=== PATIENT | female | born 1980 | race Caucasian/White ===

== ENCOUNTER → 2020-08-03 | Outpatient (CLI) | payer BC, OTHER | END | disposition home or self-care (01) | LOC: LABWHC1 10:42 | PROVIDERS: ATTEND Family Medicine | DX: Z03.818 Encounter for observation for suspected exposure to other biological agents ruled out (principal) | CPT/HCPCS: U0003; C9803 ==

== ENCOUNTER → 2022-06-30 | Outpatient (CLI) | payer OTHER ==
--- NOTE | 2022-07-04 08:08 | MM ---
Reason for Exam: Screening (asymptomatic). Baseline mammogram. Patient History: Menarche at age 11. First Full-Term at age 17. Patient used Hormonal Contraceptives for 3 years. Paternal grandmother had ovarian cancer. Maternal aunt had breast cancer. Risk Values: Liyah 5 year model risk: 0.5%. NCI Lifetime model risk: 7.1%. Prior Study Comparison: Patient's first Mammogram. No prior studies available for comparison. Tissue Density: There are scattered fibroglandular densities. Findings: Analyzed By CAD. Focal asymmetry in the left breast posterior depth upper outer quadrant. Overall Assessment: Incomplete: need additional imaging evaluation, BI-RAD 0 Management: Diagnostic Mammogram of the left breast. A clinical breast exam by your physician is recommended on an annual basis and results should be correlated with mammographic findings. Electronically signed and approved by: Tay Olivier DO
== END | disposition home or self-care (01) ==
LOC: RADMAMWWP 10:58
PROVIDERS: ATTEND Family Medicine
DX: Z12.31 Encounter for screening mammogram for malignant neoplasm of breast (principal); Z80.3 Family history of malignant neoplasm of breast
CPT/HCPCS: 77063; 77067

== ENCOUNTER → 2022-07-10 | Outpatient (CLI) | payer OTHER ==
--- NOTE | 2022-07-10 09:42 | MM ---
Reason for Exam: Additional evaluation requested from abnormal screening. Last screening mammogram was performed less than 1 month ago. Patient History: Menarche at age 11. First Full-Term at age 17. Patient used Hormonal Contraceptives for 3 years. Paternal grandmother had ovarian cancer. Maternal aunt had breast cancer. Risk Values: Liyah 5 year model risk: 0.5%. NCI Lifetime model risk: 7.1%. Prior Study Comparison: 06/30/2022 Bilateral MG 3D screening mammo w/cad, [facility]. Tissue Density: Left: There are scattered fibroglandular densities. Findings: Analyzed By CAD. Along the 2:00 posterior depth left breast, the area of focal asymmetry disperses on the 3-D CC view but persists on spot MLO and mediolateral views. On tomographic images, this may represent a focal island of fibroglandular tissue. Further ultrasound evaluation recommended. Overall Assessment: Incomplete: need additional imaging evaluation, BI-RAD 0 Management: Diagnostic Breast Ultrasound of the left breast. Upper-outer quadrant, suspected focal island of fibroglandular tissue. Electronically signed and approved by: Ramsey Williamson M.D. Radiologist
--- NOTE | 2022-07-10 10:04 | USB ---
Reason for Exam: Additional evaluation requested from abnormal screening. Patient History: Menarche at age 11. First Full-Term at age 17. Patient used Hormonal Contraceptives for 3 years. Paternal grandmother had ovarian cancer. Maternal aunt had breast cancer. Risk Values: Liyah 5 year model risk: 0.5%. NCI Lifetime model risk: 7.1%. Technique: Method: Targeted. Prior Study Comparison: 06/30/2022 Bilateral MG 3D screening mammo w/cad, [facility]. Findings: The upper outer quadrant of the left breast, the axilla of the left breast and the retroareolar of the left breast were scanned. Targeted ultrasound upper outer quadrant 12:00 to 3:00 including the subareolar region and axilla. No solid or cystic lesion or other discrete abnormality is seen. Overall Assessment: Benign, BI-RAD 2 Management: Diagnostic Mammogram of the left breast in 6 months. For the upper outer quadrant focal asymmetry, likely island of fibroglandular tissue. Patient should continue monthly self breast exams. Electronically signed and approved by: Ramsey Williamson M.D. Radiologist
== END | disposition home or self-care (01) ==
LOC: RADMAMWWP 08:51
PROVIDERS: ATTEND Family Medicine
DX: R92.8 Other abnormal and inconclusive findings on diagnostic imaging of breast (principal); Z80.3 Family history of malignant neoplasm of breast
CPT/HCPCS: 77061; 77065

== ENCOUNTER → 2023-02-06 | Outpatient (CLI) | payer BC ==
--- NOTE | 2023-02-06 10:26 | CA ---
Stress Echo Report Khushbu Raymundo Age: 42 Gender: F : 1980 Exam Date: 02/06/2023 08:52 Exam Location: [place] [facility] Ht (in): 66 Wt (lb): 200 Ordering Physician: Jose Manuel Dickinson MD Referring Physician: Alok BABCOCK Injection Maintenance Technician: TORO Technologist Procedure CPT: Indication: I10 Hypertension R07.9 Chest Pain ICD-9 Codes: Rhythm: Patient History: Chest pain and abnromal ekg Cardiac Medications: Medications in past 24 hours: Contrast: Stress Results Protocol: Gordy Total dose(mL): Exercise Duration (min:sec): Max ST Depression (mm): Angina Score: Irvin Score: METS: 7.3 Resting HR: 73 Resting BP: 146 / 93 Peak HR: 162 Peak BP: 234 / 74 Max Predicted HR: 176 92 % Max Predicted HR Target HR: 150 Double Product: [id number] Stress Summary: BP Response: Reason for Termination: Reached target heart rate or work-load and Dyspnea Cardiac Symptoms: Dyspnea ECG Analysis Resting ECG: Stress ECG: Arrhythmia: Echo Analysis Resting Echo: Peak Echo Analysis: MEASUREMENTS (Male/Female) Normal Values CONCLUSIONS Good exercise started on some Normal echocardiogram in response to exercise Premature ventricular contraction in response to exercise. No ischemic ST changes noted Dr. Maurizio Guerra MD (Electronically Signed) Final Date: 06 February 2023 10:26
--- NOTE | 2023-02-07 09:34 | CA ---
Transthoracic Echo Report Name: Khushbu Raymundo Age: 42 Gender: F : 1980 Exam Date: 02/06/2023 08:36 Exam Location: [place] [facility] Ht (in): 66 Wt (lb): 200 Ordering Physician: Jose Manuel Dickinson MD Attending/Referring Phys: [id number] Bowman Corporate Wellness Coordinator Jocelynn Ibarra, [facility] Procedure CPT: Indications: I10 Hypertension R07.9 Chest Pain Cardiac Hx: Technical Quality: Fair Contrast 1: Total Dose (mL): Contrast 2: Total Dose (mL): MEASUREMENTS (Male / Female) Normal Values 2D ECHO LV Diastolic Diameter PLAX 5.3 cm 4.2 - 5.9 / 3.9 - 5.3 cm LV Systolic Diameter PLAX 3.5 cm IVS Diastolic Thickness 1.3 cm 0.6 - 1.0 / 0.6 - 0.9 cm LVPW Diastolic Thickness 1.4 cm 0.6 - 1.0 / 0.6 - 0.9 cm LV Relative Wall Thickness 0.5 RV Internal Dim ED PLAX 3.1 cm LA Volume 81.2 cm??? 18 - 58 / 22 - 52 cm??? M-MODE Aortic Root Diameter MM 3.4 cm LA Systolic Diameter MM 3.5 cm LA Ao Ratio MM 1.0 AV Cusp Separation MM 2.4 cm DOPPLER AV Peak Velocity 132.5 cm/s AV Peak Gradient 7.0 mmHg AV Mean Velocity 103.1 cm/s AV Mean Gradient 4.5 mmHg AV Velocity Time Integral 30.2 cm LVOT Peak Velocity 101.8 cm/s LVOT Peak Gradient 4.1 mmHg LVOT Velocity Time Integral 23.2 cm MV Area PHT 4.7 cm??? Mitral E Point Velocity 71.2 cm/s Mitral A Point Velocity 83.1 cm/s Mitral E to A Ratio 0.9 MV Deceleration Time 160.4 ms MV E' Velocity 7.6 cm/s Mitral E to MV E' Ratio 9.3 TR Peak Velocity 223.5 cm/s TR Peak Gradient 20.0 mmHg Right Ventricular Systolic Press 25.0 mmHg FINDINGS Left Ventricle Moderately increased left ventricular wall thickness. Left ventricular cavity size normal. Normal left ventricular systolic function with no obvious regional wall motion abnormalities. Left ventricular ejection fraction is estimated at 55 %. Right Ventricle Normal right ventricular size and function. Right ventricular systolic pressure within normal limits. Right Atrium Normal right atrial size. Left Atrium Moderately increased left atrial volume. Mildly increased left atrial area. Mitral Valve Structurally normal mitral valve. No mitral stenosis. Mild mitral regurgitation. Aortic Valve Trileaflet aortic valve. No aortic valve stenosis or regurgitation. Tricuspid Valve Structurally normal tricuspid valve. Mild tricuspid regurgitation. Pulmonic Valve Trace pulmonic regurgitation. Pericardium No pericardial effusion. Aorta Normal size aortic root and proximal ascending aorta. CONCLUSIONS Normal LV systolic function Normal pulmonary artery systolic pressure Normal intracardiac valves No evidence of pericardial effusion Previewed by: Dr. Maurizio Guerra MD (Electronically Signed) Final Date: 07 February 2023 09:33
== END | disposition home or self-care (01) ==
LOC: RADECHMAIN 07:57
PROVIDERS: ATTEND Family Medicine
DX: I10 Essential (primary) hypertension (principal); R07.9 Chest pain, unspecified
CPT/HCPCS: 93306; 93351

== ENCOUNTER → 2024-01-09 | Outpatient (CLI) | payer OTHER ==
--- NOTE | 2024-01-09 22:45 | MM ---
Reason for Exam: Screening (asymptomatic). Last mammogram was performed 1 year(s) and 6 month(s) ago. Patient History: Menarche at age 11. First Full-Term at age 17. Patient used Hormonal Contraceptives for 3 years. Paternal grandmother had ovarian cancer. Maternal aunt had breast cancer. Risk Values: Liyah 5 year model risk: 0.6%. NCI Lifetime model risk: 7.0%. Prior Study Comparison: 06/30/2022 Bilateral MG 3D screening mammo w/cad, [facility]. 07/10/2022 Left MG 3D work up w/cad , [facility]. Tissue Density: There are scattered areas of fibroglandular density. Findings: Analyzed By CAD. The pattern is symmetrical. There is a focal asymmetry in the upper outer left breast which is more apparent on the current examination changed. Additional workup is recommended with mammogram and ultrasound Right breast:No suspicious groups of microcalcifications, spiculated or lobular masses, architectural distortion or other secondary signs of malignancy are mammographically apparent. Overall Assessment: Incomplete: need additional imaging evaluation, BI-RAD 0 Management: Diagnostic Mammogram of the left breast. Diagnostic Breast Ultrasound of the left breast. A negative mammogram report should not preclude additional follow up of suspicious palpable abnormalities. Patient should continue monthly self breast exam. A clinical breast exam by your physician is recommended on an annual basis and results should be correlated with mammographic findings. Electronically signed and approved by: Jagdish Judd D.O. Radiologis
== END | disposition home or self-care (01) ==
LOC: RADMAMWWP 08:00
PROVIDERS: ATTEND Family Medicine
DX: Z12.31 Encounter for screening mammogram for malignant neoplasm of breast (principal); Z80.3 Family history of malignant neoplasm of breast
CPT/HCPCS: 77067

== ENCOUNTER → 2024-01-23 | Outpatient (CLI) | payer OTHER ==
--- NOTE | 2024-01-23 09:11 | USB ---
Reason for Exam: Additional evaluation requested from abnormal screening. Patient History: Menarche at age 11. First Full-Term at age 17. Patient used Hormonal Contraceptives for 3 years. Paternal grandmother had ovarian cancer. Maternal aunt had breast cancer. Risk Values: Liyah 5 year model risk: 0.6%. NCI Lifetime model risk: 7.0%. Technique: Method: Targeted. Prior Study Comparison: 06/30/2022 Bilateral MG 3D screening mammo w/cad, [facility]. 07/10/2022 Left MG 3D work up w/cad , [facility]. 01/09/2024 Bilateral MG screening mammo w [facility], [facility]. Findings: The upper outer quadrant of the left breast, the axilla of the left breast and the retroareolar of the left breast were scanned. No solid or cystic masses are identified. Findings felt to reflect an island of glandular tissue for outer left breast. Overall Assessment: Benign, BI-RAD 2 Management: Screening Mammogram of both breasts in 1 year. A clinical breast exam by your physician is recommended on an annual basis and results should be correlated with mammographic findings. This exam should not preclude additional follow-up of suspicious palpable abnormalities. Results were given to the patient verbally at the time of exam. Electronically signed and approved by: Jose Duvla M.D. Radiologis
--- NOTE | 2024-01-24 14:45 | MM ---
Reason for Exam: Additional evaluation requested from abnormal screening. Last screening mammogram was performed less than 1 month ago. Patient History: Menarche at age 11. First Full-Term at age 17. Patient used Hormonal Contraceptives for 3 years. Paternal grandmother had ovarian cancer. Maternal aunt had breast cancer. Risk Values: Liyah 5 year model risk: 0.6%. NCI Lifetime model risk: 7.0%. Prior Study Comparison: 06/30/2022 Bilateral MG 3D screening mammo w/cad, [facility]. 07/10/2022 Left MG 3D work up w/cad , [facility]. 01/09/2024 Bilateral MG screening mammo w CAD, [facility]. Tissue Density: Left: There are scattered areas of fibroglandular density. Findings: Analyzed By CAD. Increasing probable island of fibroglandular tissue upper outer left breast. Ultrasound is recommended. Overall Assessment: Incomplete: need additional imaging evaluation, BI-RAD 0 Management: Diagnostic Breast Ultrasound of the left breast. . Results were given to the patient verbally at the time of exam. Patient should continue monthly self-breast exams. A clinical breast exam by your physician is recommended on an annual basis. This exam should not preclude additional follow-up of suspicious palpable abnormalities. Note on Liyah scores and lifetime risk: 1. A Liyah score greater than 3% is considered moderate risk. If this is the case, consider specialist referral to assess eligibility for a risk reducing agent. 2. If overall lifetime risk for the development of breast cancer is 20% or higher, the patient may qualify for future screening with alternating mammogram and breast MRI. Electronically signed and approved by: Jose Duval M.D. Radiologis
== END | disposition home or self-care (01) ==
LOC: RADMAMWWP 08:17
PROVIDERS: ATTEND Family Medicine
DX: R92.8 Other abnormal and inconclusive findings on diagnostic imaging of breast (principal); Z80.3 Family history of malignant neoplasm of breast
CPT/HCPCS: 77061; 77065

== ENCOUNTER → 2024-12-10 | Outpatient (CLI) | payer BC ==
--- NOTE | 2024-12-10 15:30 | US ---
EXAMINATION TYPE: US groin LT DATE OF EXAM: 12/10/2024 COMPARISON: NONE CLINICAL INDICATION: Female, 43 years old with history of K40.90 INGUINAL HERNIA WO OBSTRUCTION; TECHNIQUE: FINDINGS: Hypoechoic possible defect seen in Lt groin at pt area of pain. There appears to be anteri or movement upon valsalva, 0.6cm Possible Hernia, Consider additional imaging modality to confirm Lymph node seen in Lt groin pt area of pain as well: 1.7x0.5x0.8cm IMPRESSION: Prominent but benign-appearing left groin lymph node marked by the technologist. A small to moderate-sized fat-containing left inguinal hernia is felt present. [facility], , 12/10/2024 3:27 PM
== END | disposition home or self-care (01) ==
LOC: RADUSWWP 14:52
PROVIDERS: ATTEND Family Medicine
DX: K40.90 Unilateral inguinal hernia, without obstruction or gangrene, not specified as recurrent (principal)

== ENCOUNTER 2025-02-11 08:49 | Day surgery (SDC) | payer BC ==
--- NOTE | 2025-02-11 09:12 | P.GSHP ---
History of Present Illness H&P Date: 02/11/25 CHIEF COMPLAINT: Colon screen HISTORY OF PRESENT ILLNESS: The patient is a 44-year-old female who presents for colon screen. Lower endoscopy was offered for further evaluation and management. PAST MEDICAL HISTORY: Please see list. PAST SURGICAL HISTORY: Please see list. MEDICATIONS: Please see list. ALLERGIES: Please see list. SOCIAL HISTORY: No illicit drug use FAMILY HISTORY: No reports of Crohn disease or ulcerative colitis. REVIEW OF ORGAN SYSTEMS: CONSTITUTIONAL: No reports of fevers or chills. PHYSICAL EXAM: VITAL SIGNS: Stable GENERAL: Well-developed pleasant in no acute distress. HEENT: No scleral icterus. Extraocular movements grossly intact. Moist buccal mucosa. NECK: Supple without lymphadenopathy. CHEST: Unlabored respirations. Equal bilateral excursions. CARDIOVASCULAR: Regular rate and rhythm. Distal 2+ pulses. ABDOMEN: Soft, nontender, nondistended. MUSCULOSKELETAL: No clubbing, cyanosis, or edema. ASSESSMENT: 1. Colon screen. PLAN: 1. Recommend proceeding with a lower endoscopy Past Medical History Past Medical History: GERD/Reflux, Hyperlipidemia, Hypertension Additional Past Medical History / Comment(s): PLANTAR FACIATIS LEFT FOOT History of Any Multi-Drug Resistant Organisms: None Reported Past Surgical History: Uterine Ablation Additional Past Surgical History / Comment(s): UTERIN ABLATION 2013 Past Anesthesia/Blood Transfusion Reactions: Motion Sickness, Postoperative Nausea & Vomiting (PONV) Additional Past Anesthesia/Blood Transfusion Reaction / Comment(s): HYPERTENSIVE POST OP IN 2013 Smoking Status: Former smoker - Past Family History Father Family Medical History: Hypertension, Myocardial Infarction (PR) Brother(s) Additional Family Medical History / Comment(s): BRAIN ANEURYM Medications and Allergies Home Medications Medication Instructions Recorded Confirmed Type Omeprazole [PriLOSEC] 20 mg PO DAILY PRN 09/03/14 02/09/25 History Atorvastatin [Lipitor] 40 mg PO DAILY 01/18/15 02/09/25 History Lisinopril/Hydrochlorothiazide 1 tab PO DAILY 01/18/15 02/09/25 History [Lisinopril-Hctz 10-12.5 mg Tab] Ergocalciferol [Vitamin D2 (1250 1 tab PO MO 02/09/25 02/09/25 History Mcg = 66323 Iu)] FLUoxetine HCL [PROzac] 10 mg PO DAILY 02/09/25 02/09/25 History amLODIPine BESYLATE 10 mg PO DAILY 02/09/25 02/09/25 History Allergies Allergy/AdvReac Type Severity Reaction Status Date / Time No Known Allergies Allergy Verified 02/09/25 11:07
[2025-02-11 10:06] VITALS: TEMP 96.8
[2025-02-11] MEDS: LACTATED RINGERS 1,000 ML IV SCH (10:07)
[2025-02-11] MEDS: ONDANSETRON 4 MG/2 ML VIAL IVP STA (10:08)
[2025-02-11] MEDS: IV FLUID CONTINUATION 1,000 ML IV ONE (10:13)
[2025-02-11] MEDS ORDERED: PROPOFOL 10 MG/ML 20 ML VIAL IV ONE (10:20)
--- NOTE | 2025-02-11 11:03 | P.PN ---
Progress Note - Text Progress Note Date: 02/11/25 Patient reports family history of heart disease including atypical chest pain. Twelve-lead EKG being obtained. Additionally, patient reports left inguinal hernia. Will need preoperative additional assessment.
--- NOTE | 2025-02-11 11:41 | P.PCN ---
Date of Procedure: 02/11/25 Description of Procedure: PREOPERATIVE DIAGNOSIS: Family history colon cancer, brother Colonoscopy screening. POSTOPERATIVE DIAGNOSIS: Colonoscopy screening. Diverticulosis, scattered. OPERATION: Colonoscopy to the cecum, ileocecal valve and appendiceal orifice. SURGEON: Yael Lynn MD. ANESTHESIA: MAC. INDICATIONS: The patient is a 44-year-old female who presents for colonoscopy screening. Benefits and risks were described and informed consent was obtained. DESCRIPTION OF PROCEDURE: The patient had undergone Suprep. The patient had been brought into the operating room and laid in the left lateral decubitus position. After adequate intravenous sedation, the rectum was examined with 2% lidocaine jelly. No external hemorrhoids were encountered. The rectal tone was within normal limits. No lesions were palpated in the rectal vault. An Olympus colonoscope was advanced until the cecum, ileocecal valve and appendiceal orifice were clearly viewed. The prep was good. Scattered diverticulosis was encountered. No colonic polyps were found. No evidence of focal colitis was found. Retroflexion of the scope demonstrated grade 1 internal hemorrhoids without active bleeding or inflammation. The colon was desufflated. The patient had tolerated the procedure well. Withdrawal time was over 6 minutes. FINDINGS: Aronchick preparation quality scale (1-5) Internal hemorrhoids, grade 1 No external prolapsed hemorrhoids. No arteriovenous malformations. No adenomatous polyps. No focal colitis. Highly redundant sigmoid colon requiring abdominal pressure Sigmoid diverticulosis RECOMMENDATIONS: Lower endoscopy 2029 Plan - Discharge Summary Discharge Rx Participant: No New Discharge Prescriptions: Continue Omeprazole [PriLOSEC] 20 mg PO DAILY PRN PRN Reason: Heartburn Atorvastatin [Lipitor] 40 mg PO DAILY Lisinopril/Hydrochlorothiazide [Lisinopril-Hctz 10-12.5 mg Tab] 1 tab PO DAILY FLUoxetine HCL [PROzac] 10 mg PO DAILY amLODIPine BESYLATE 10 mg PO DAILY Ergocalciferol [Vitamin D2 (1250 Mcg = 97060 Iu)] 1 tab PO MO Discharge Medication List Omeprazole [PriLOSEC] 20 mg PO DAILY PRN 09/03/14 [History] Atorvastatin [Lipitor] 40 mg PO DAILY 01/18/15 [History] Lisinopril/Hydrochlorothiazide [Lisinopril-Hctz 10-12.5 mg Tab] 1 tab PO DAILY 01/18/15 [History] Ergocalciferol [Vitamin D2 (1250 Mcg = 50608 Iu)] 1 tab PO MO 02/09/25 [History] FLUoxetine HCL [PROzac] 10 mg PO DAILY 02/09/25 [History] amLODIPine BESYLATE 10 mg PO DAILY 02/09/25 [History] Follow up Appointment(s)/Referral(s): Yael Lynn MD [STAFF PHYSICIAN] - 03/05/25 (Arrive at [facility] outpatient for inguinal hernia surgery) Patient Instructions/Handouts: Diverticulosis Diet (GEN) Activity/Diet/Wound Care/Special Instructions: Repeat colonoscopy 5 years, 2030 Discharge Disposition: HOME SELF-CARE
[2025-02-11 12:04] VITALS: BP 121/83; PULSE 75; RESP 18
== END 2025-02-11 12:12 | disposition home or self-care (01) ==
LOC: ORWHC2ENDO 08:49
PROVIDERS: ATTEND Surgery Plastic and Reconstructive Surgery
DX: Z12.11 Encounter for screening for malignant neoplasm of colon (principal); K57.30 Diverticulosis of large intestine without perforation or abscess without bleeding; I10 Essential (primary) hypertension; E78.5 Hyperlipidemia, unspecified; K40.90 Unilateral inguinal hernia, without obstruction or gangrene, not specified as recurrent; K21.9 Gastro-esophageal reflux disease without esophagitis; Z79.899 Other long term (current) drug therapy; Z80.0 Family history of malignant neoplasm of digestive organs; Z87.891 Personal history of nicotine dependence
CPT/HCPCS: 81025; 45378; J2405; J2704

== ENCOUNTER → 2025-03-24 | Outpatient (CLI) | payer BC ==
--- NOTE | 2025-03-26 23:16 | CT ---
EXAMINATION TYPE: CT abdomen pelvis wo con DATE OF EXAM: 03/24/2025 8:08 AM COMPARISON: None. CLINICAL INDICATION: Female, 44 years old with history of N20.0 CALCULUS OF KIDNEY, LEFT GROIN MASS TECHNIQUE: Axial images were obtained from above the diaphragm to the pubic rami in the axial plane a t 5 mm thick sections. Reconstructed images are reviewed on the computer in the coronal plane. CONTRAST: mL of . Study performed without Oral Contrast DLP: 635.1 mGycm, Automated exposure control for dose reduction was used. FINDINGS: Limited CT sections are obtained the lung bases. The lung bases are clear. CT ABDOMEN: Liver: Normal Spleen: Normal Pancreas: Normal Adrenal glands: The adrenal glands are normal. Gallbladder: Normal Kidneys: No masses are evident. No hydronephrosis is present. No cysts are present. No renal stone s are evident. Aorta: Normal Inferior vena cava: Normal. CT PELVIS: Tiny periumbilical hernia containing mesenteric fat is present. Anterior abdominal wall ot herwise appears intact. No inguinal hernias are radiographically apparent. Loops of bowel within the abdomen and pelvis are normal. Study is without oral contrast within tanisha wel evaluation. Appendix: Identified inferior right lower quadrant. No dilated tubular structure or inflammatory sawant ges evident. Urinary bladder: Normal. Genitourinary structures: Uterus is normal. Adnexa are normal. Osseous structures: No suspicious lytic or sclerotic lesions. IMPRESSION: 1. Tiny periumbilical hernia with mesenteric fat. 2. No suspicious acute changes. No renal or ureteral stones identified. [facility], , 03/26/2025 11:13 PM
== END | disposition home or self-care (01) ==
LOC: RADCTMAIN 07:55
PROVIDERS: ATTEND Surgery Plastic and Reconstructive Surgery
DX: N20.0 Calculus of kidney (principal); K42.9 Umbilical hernia without obstruction or gangrene
CPT/HCPCS: 74176